=== PATIENT | male | born 1975 | race Two or more races ===

== ENCOUNTER 2017-01-30 16:46 | Emergency (ER) | payer OTHER ==
[~2017-01-30] VITALS: Ht 180.3 cm; Wt 83.9 kg
[2017-01-30 17:10] VITALS: BP 140/88
== END 2017-01-30 18:00 | disposition left against medical advice (07) ==
LOC: ER 16:46
DX: M25.571 Pain in right ankle and joints of right foot (principal); X58.XXXA Exposure to other specified factors, initial encounter; Y93.89 Activity, other specified; Y92.89 Other specified places as the place of occurrence of the external cause; Y99.8 Other external cause status; Z53.21 Procedure and treatment not carried out due to patient leaving prior to being seen by health care provider